=== PATIENT | female | born 1980 | race Caucasian/White ===

== ENCOUNTER 2025-08-24 08:37 | Emergency (ER) | payer BC, SELFPAY ==
[2025-08-24] VITALS (7 sets, daily range): BP systolic 102–132; BP diastolic 62–81
[2025-08-24 09:20] LABS: Hematocrit 38.4 % (37.0-47.0); Hemoglobin 12.9 g/dL (12.0-16.0); Mean Corp Hgb Conc. 33.6 g/dL (33.0-37.0); Mean Corpuscular Volume 90.4 fL (81.0-99.0); Nucleated Red Blood Cells % 0 %; Platelet Count 203 10^3/uL (130-400); Red Cell Dist. Width 12.3 % (11.5-14.5)
[2025-08-24 09:34] LABS: ALT (SGPT) 32 U/L (0-35); AST (SGOT) 23 U/L (14-36); Albumin 4.3 g/dl (3.5-5.0); Alkaline Phosphatase 55 U/L (38-126); Blood Urea Nitrogen 9 mg/dl (7-17); Calcium 9.0 mg/dl (8.4-10.2); Carbon Dioxide 30 mmol/L (22-30); Chloride 105 mmol/L (98-107); Glucose 86 mg/dl (70-99); Lipase 142 U/L (23-300); Potassium 4.1 mmol/L (3.5-5.1); Sodium 137 mmol/L (135-145); Total Protein 6.8 g/dl (6.3-8.2); eGFR > 60.00
[2025-08-24 09:43] LABS: Troponin I < 0.012 ng/ml
[2025-08-24 09:59] LABS: D-Dimer 0.33 ug/mlFEU (0.00-0.50)
--- NOTE | 2025-08-24 12:45 | ED.GENMED ---
History of Present Illness
General
Chief Complaint: Chest Pain
Source: patient and family
Time Seen by Provider: 08/24/25 08:48
History of Present Illness
History of Present Illness:
Note:
CHIEF COMPLAINT(S)
Chest tightness
HISTORY OF PRESENT ILLNESS
The patient is a 45-year-old female who presents with a primary complaint of chest tightness. She reports the onset of these symptoms approximately a week and a half ago. The chest tightness is described as worsening with activities such as bending
over, picking up objects, or even brushing her teeth. The pain woke her from sleep last night, and she notes it is present most of the time. She has not noticed any associated belching, nausea, or worse symptoms with eating, although leaning forward
seems to exacerbate the symptoms. The patient traveled to [place] 29 days ago and denies symptoms like shortness of breath, pain on deep breathing, or hemoptysis. She describes her lifestyle as 'stressful,' and cites occupational stress. She has a
family history of heart disease in her parents.
PAST MEDICAL AND SURGICAL HISTORY
None.
SOCIAL HISTORY
The patient occasionally consumes alcohol. She works in [employer]. and is currently visiting.
MEDICATIONS
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
REVIEW OF SYSTEMS
- Cardiovascular: Reports chest tightness, denies lower extremity swelling, recently traveled.
- Gastrointestinal: Denies belching or nausea; pain possibly exacerbated by leaning forward.
- Respiratory: No reports of shortness of breath or pleuritic pain.
PHYSICAL EXAM
General: Alert, no acute distress.
Skin: Warm, dry.
Head: Normocephalic, atraumatic.
Neck: Supple, trachea midline.
Ears, nose, mouth, and throat: Oral mucosa moist.
Cardiovascular: Heart sounds normal, no murmur, normal peripheral perfusion, no pedal edema.
Respiratory: Breath sounds clear, no wheezes or crackles, respirations are non-labored.
Gastrointestinal: Abdomen non-distended.
Musculoskeletal: Normal range of motion, normal strength.
Neurological: Alert and oriented to person, place, time, and situation; no focal neurological deficits.
Psychiatric: Cooperative, appropriate mood & affect.
PLAN
1. Obtain D-dimer blood test to evaluate for possible blood clots, due to recent travel.
2. If D-dimer is positive, proceed with a computed tomography scan instead of a chest X-ray to rule out pulmonary embolism.
3. Monitor heart enzymes for any indication of cardiac stress or damage.
4. Evaluate gastrointestinal symptoms further if cardiac and vascular investigations are negative.
DIFFERENTIAL DIAGNOSIS
The Differential Diagnosis includes, in no particular order and is not limited to:
1. Musculoskeletal pain
2. Gastroesophageal reflux disease (GERD)
3. Anxiety-related chest pain
4. Coronary artery disease
5. Pulmonary embolism
6. Gallbladder disease
7. Costochondritis
8. Pericarditis
9. Esophageal spasm
10. Peptic ulcer disease
EKG
My independent EKG interpretation is:
- Time of EKG: Not specified
- Rhythm: Normal sinus rhythm
- Heart Rate: 52 bpm (sinus bradycardia)
- [place]: Normal axis
- Intervals: Normal intervals
- Abnormalities: No acute ischemic changes noted
Disposition:
SUMMARY OF ENCOUNTER
The patient, a 45-year-old female, presented with chest discomfort experienced over the past week and a half. The discomfort worsened with certain activities, such as bending over. Upon examination and testing in the emergency department, including
troponin, D-dimer, CBC, CMP, EKG, and chest X-ray, all results were found to be normal. The patient appears to be in good health otherwise, and there is no suspicion of pericarditis or myocarditis.
PLAN
Recommend the patient try a proton pump inhibitor (PPI) daily to alleviate symptoms. Advised the patient to follow up with her primary care physician if symptoms persist.
INDEPENDENT REVIEW OF LABS AND INTERPRETATION OF TESTS
My independent review of the troponin test is normal. My independent review of the D-dimer is negative. My independent review of the CBC indicates normal white blood count and hemoglobin. My independent review of the CMP is normal. My independent
review of the EKG shows normal findings. My independent review of the chest X-ray is normal.
PATIENT EDUCATION AND COUNSELING
The patient was informed about the potential benefits of taking a PPI to manage symptoms and was advised to seek follow-up care with her primary care provider if symptoms continue.
FOLLOW-UP INSTRUCTIONS
The patient was advised to follow up with her primary care physician if symptoms persist.
MEDICATION RECONCILIATION
Recommended initiation of a proton pump inhibitor (PPI) for symptom management.
MEDICAL DECISION MAKING
1. Number and Complexity of Problems Addressed: Chronic conditions affecting care include unspecified syndrome. Considerations include musculoskeletal pain, gastroesophageal reflux disease (GERD), anxiety-related chest pain, coronary artery disease,
pulmonary embolism, gallbladder disease, costochondritis, pericarditis, esophageal spasm, peptic ulcer disease.
2. Data:
-Category 1: My independent interpretation of troponin, D-dimer, CBC, CMP, EKG, and chest X-ray; all were normal.
3. Risk: Prescription medication management recommended with a PPI to alleviate potential GERD-related symptoms. �Consideration of Admission/Observation: Escalation of care including admission/observation was considered given the complexity and risk
of the patients presenting complaint, exam findings, and/or their underlying comorbidities. However, ultimately, I feel the patient is safe for outpatient management with close follow-up. Reasoning: Work-up reassuring, does not reveal any acute
life/organ-threatening processes, patients symptoms well controlled upon reevaluation, reexamination is reassuring, vitals are stable, patient agreeable with discharge, reliable for follow-up.�
DIAGNOSIS
- R07.89: Other chest pain
- K21.9: Gastroesophageal reflux disease without esophagitis
Phy Exam
Physical Exam
Physical Exam:
.
Scores
Heart Score for Chest Pain Patients
STEMI patient?: No
History: Slightly or Non-Suspicious
ECG: Normal
Age: </= 45 years
Risk Factors: No Risk Factors
Troponin: </= Normal Limit
Heart Score for Chest Pain Patients: 0
Heart Score Risk: 2.5% MACE over next 6 weeks
Course
Orders/Labs/Results
Orders:
Orders
08/24/25 08:42
EKG [Electrocardiogram (*1)] Urgent
Reason for Study: Chest Pain
EKG- Treatment ONCE
08/24/25 09:11
Complete Blood Count/With Diff Urgent
Comprehensive Metabolic Panel Urgent
Lipase Urgent
Troponin I Urgent
08/24/25 09:38
D-Dimer Urgent
08/24/25 10:48
CR Chest - 2 Views Urgent
Comment:
Reason For Exam: cp
08/24/25 09:11
08/24/25 09:11
Vital Signs
Initial and Last Documented VS:
Initial Vital Signs
Temp Pulse Resp BP Pulse Ox
97.8 F 76 18 132/81 99
08/24/25 08:39 08/24/25 08:39 08/24/25 08:39 08/24/25 08:39 08/24/25 08:39
Last Documented Vital Signs
Temp Pulse Resp BP Pulse Ox
97.8 F 57 15 117/74 99
08/24/25 08:39 08/24/25 10:45 08/24/25 10:45 08/24/25 12:56 08/24/25 12:46
*Pulse Oximetry
SaO2: 99
Oxygen Mode of Delivery: Room air
Patient hypoxic: no
*Critical Care Note
Total Time (30-74mins, 75-104mins- exclusive of procedures): Not Applicable
ED Attending Note
-
Portions of this chart may have been created with voice recognition software.� Occasional wrong word or��sound alike� substitutions may have occurred due to the inherent limitations of voice recognition software.
Discharge Plan
Departure
Patient Disposition: Home (Routine Discharge)
Date of Disposition: 08/24/25
Time of Disposition: 12:50
Patient with high blood pressure during this ER visit?: No
Discharge Problem:
Chest pain
Instructions: Chest Pain PCP Follow Up
Prescriptions:
New
pantoprazole [Protonix] 40 mg tablet,delayed release (DR/EC)
40 mg PO DAILY Qty: 30 0RF
Rx Instructions:
Please take 30 minutes prior to eating or drinking anything in the morning.
Referrals:
UNKNOWN - PT DOES,NOT KNOW [Family Provider]
Activity Restrictions/Additional Instructions:
Please stick to a bland diet and use antacid 30 minutes prior to breakfast in the morning as discussed. Return immediately or seek emergency care if you have shortness of breath, worsening pain, leg swelling or any other concerns. If symptoms
persist, please see your doctor in the next 1 week for follow-up and reevaluation consideration for further testing.
Interventions
Interventions:
*Risk Screen - Suicide Last Done: 08/24/25 08:39
*General Assessment Last Done: 08/24/25 08:39
*ED COVID-19 Vaccine History Last Done: 08/24/25 08:39
*ED Influenza Vaccine History Last Done: 08/24/25 08:39
*Nursing Disposition Last Done: 08/24/25 12:59
ED- Cardiac Assessment Last Done: 08/24/25 09:00
Discharge Date and Time
Discharge Date/Time: 08/24/25 12:59
Print Language: SAMI
== END 2025-08-24 12:59 | disposition home or self-care (01) ==
LOC: EMR 08:37
PROVIDERS: EMERGENCY PHYSICIAN Emergency Medicine
DX: R07.89 Other chest pain (principal); K21.9 Gastro-esophageal reflux disease without esophagitis; Z82.49 Family history of ischemic heart disease and other diseases of the circulatory system; R00.1 Bradycardia, unspecified
CPT/HCPCS: 99285; 71046; 80053; 83690; 84484; 85025; 85379; 93005